=== PATIENT | male | born 1985 | race Caucasian/White ===

== ENCOUNTER 2021-07-05 01:18 | Emergency (ER) | payer OTHER ==
[2021-07-05] MEDS ORDERED: Cyclobenzaprine 10 MG Tab PO ONE (01:19)
[2021-07-05] MEDS ORDERED: Acetaminophen/HYDROcodone 325-5 MG Tab PO ONE (01:19)
[2021-07-05] MEDS ORDERED: predniSONE 20 MG Tab PO ONE (01:19)
[2021-07-05] MEDS ORDERED: predniSONE 20 MG Tab ONE (02:16)
[2021-07-05] MEDS ORDERED: Cyclobenzaprine 10 MG Tab ONE (02:16)
[2021-07-05] MEDS ORDERED: Acetaminophen/HYDROcodone 325-5 MG Tab ONE (02:16)
[2021-07-05 02:19] LABS: ANION GAP 12.1 mEq/L (7-13); CHLORIDE,CL 103 mmol/L (98-107); SODIUM,NA 140 mmol/L (136-145)
== END 2021-07-05 02:30 | disposition home or self-care (01) ==
LOC: DL.ED 01:18
DX: G58.8 Other specified mononeuropathies (principal); Z72.0 Tobacco use
CPT/HCPCS: 36415; 80053; 84484; 85025; 93005; 93010; 99283; 99283-25; A9270-GY; J7512